=== PATIENT | male | born 1955 | race Caucasian/White ===

== ENCOUNTER 2017-02-22 18:58 | Emergency (ER) | payer OTHER ==
[2017-02-22 19:03] VITALS: BP 148/81; PULSE 76; RESP 16; TEMP 98.2; O2SAT 98
[2017-02-22] MEDS ORDERED: CEPHALEXIN 500 MG CAP PO ONE (19:34)
[2017-02-22] MEDS ORDERED: SULFAMETHOX/TMP 800/160 MG 1 TAB PO ONE (19:34)
--- NOTE | 2017-02-22 19:37 | EDPHY ---
H & P Stated Complaint: INFECTION R 3RD DIGIT Time Seen by Provider: 02/22/17 19:34 HPI/ROS: HPI: This is a 61-year-old male who presents with Chief Complaint: Right 3rd finger infection Location: Right 3rd finger Quality: Infection Duration: Started Tuesday Signs and Symptoms: No bleeding, no radiation, no numbness, no weakness, no tingling, no incontinence, no decreased range of motion, + swelling, + pain Timing: Improved and now worsening today Severity: Moderate Context: Patient reports Tuesday he was working with wanted believes that he may have cut himself for got a piece of it inside of his right middle finger. The next day he noted some redness and tenderness. He lanced it himself and drained some purulent drainage. He then reports he washed it thoroughly and soaks it daily and hydrogen peroxide. It was improving until today when he noted that his entire right finger was moderately swollen. He denies any paresthesias/decreased range of motion/pain. Right-hand dominant. Tetanus up-to -date. No history of MRSA/diabetes mellitus. Modifying Factors: Incision and drainage; daily soaks in hydrogen peroxide Comment: ROS: see HPI Constitutional: No fever, no chills, no weight loss Eyes: No blurred vision Respiratory: No shortness of breath, no cough Cardiovascular: No chest pain Gastrointestinal: No nausea, no vomiting no diarrhea Genitourinary: No dysuria Extremities: No myalgias Neurologic: No weakness, no numbness Skin: No rashes Hematologic: No bruising, no bleeding MEDICAL/SURGICAL/SOCIAL HISTORY: Medical history: Generally healthy. Does not take any regular medications. Surgical history: L4-5 DISCECTOMY, HERNIA SURG Social history: Employed. CONSTITUTIONAL: Pleasant nontoxic-appearing elderly white male, awake and alert , no obvious distress HEENT: Atraumatic and normocephalic, PERRL, EOMI. Tympanic membranes clear. Oropharynx clear, no exudate and moist pink mucosa. Airway patent. No lymphadenopathy. No meningismus. Cardiovascular: Normal S1/S2, regular rate, regular rhythm, without murmur rub or gallop. PULMONARY/CHEST: Symmetrical and nontender. Clear to auscultation bilaterally. Good air movement. No accessory muscle usage. ABDOMEN: Soft, nondistended, nontender, no rebound, no guarding, no peritoneal signs, no masses or organomegaly. No CVAT. EXTREMITIES: 2/2 radial pulses, right middle finger distal aspect medial side; shows mild induration and erythema; no nail involvement; no fluctuant area. PIP PIP and MCP joints show full flexion and extension. strength 5/5, no deformities, no clubbing, no cyanosis or edema. NEUROLOGICAL: no focal neuro deficits. GCS 15. SKIN: Warm and dry, no erythema. no rash. Good capillary refill. Source: Patient Exam Limitations: No limitations - Personal History Current Tetanus/Diphtheria Vaccine: Yes Tetanus Vaccine Date: 2010 - Medical/Surgical History Hx Asthma: No Hx Chronic Respiratory Disease: No Hx Diabetes: No Hx Cardiac Disease: No Hx Renal Disease: No Hx Cirrhosis: No Hx Alcoholism: No Hx HIV/AIDS: No Hx Splenectomy or Spleen Trauma: No Other PMH: L4-5 DISCECTOMY, HERNIA SURG - Social History Smoking Status: Never smoked Constitutional: Initial Vital Signs Temperature (C) 36.8 C 02/22/17 19:01 Heart Rate 76 02/22/17 19:01 Respiratory Rate 16 02/22/17 19:01 Blood Pressure 148/81 H 02/22/17 19:01 O2 Sat (%) 98 02/22/17 19:01 O2 Delivery Mode Room Air Allergies/Adverse Reactions: Penicillins Allergy (Verified 02/22/17 18:59) Home Medications: Medication Instructions Recorded No Medications [NO HOME 1 ea [facility] [place] Cephalexin [Keflex (*)] 500 mg PO QID #28 cap 02/22/17 Sulfamethox/Tmp 800/160 mg 1 tab PO BID #14 tab 02/22/17 [Bactrim Ds] Medical Decision Making ED Course/Re-evaluation: Patient is adamant that he does not need labs or images. He is requesting oral antibiotics to start. He understands the risks of tenosynovitis, sepsis, loss of limb. He reports that he will follow up with his PCP or in the emergency room in 48-72 hours if he does not see improvement. No fluctuance to I and D Afebrile and no systemic signs. No signs of neurovascular compromise/tenting of skin/compartment syndrome/ extremities and joints examined above and below area of concern and are neurovascularly intact. This patient was seen under the supervision of my secondary supervising physician. I evaluated care for this patient independently. Patient's presentation, labs/imaging, treatment and plan of care were discussed with secondary supervising physician. Differential Diagnosis: Differential diagnosis includes foreign body, paronychia, tenosynovitis, cellulitis, abscess. Departure - Departure Disposition: Home, Routine, Self-Care Clinical Impression: Finger infection Condition: Good Instructions: Paronychia (ED), Cellulitis (ED) Additional Instructions: Please take all of the Keflex and Bactrim as directed until complete. Continue to wash the area with mild soap and water and soak 2-3 times per day. Limit the use of the right middle finger as much as possible until fully healed. If you do not see improvement in your infection in 48-72 hours or symptoms are worsening; please return to the emergency room immediately. Referrals: Priyanka Perez MD [Primary Care Provider] - As per Instructions Prescriptions: Cephalexin [Keflex (*)] 500 mg PO QID #28 cap Sulfamethox/Tmp 800/160 mg [Bactrim Ds] 1 tab PO BID #14 tab
== END 2017-02-22 19:50 | disposition home or self-care (01) ==
DX: L08.9 Local infection of the skin and subcutaneous tissue, unspecified (principal)

== ENCOUNTER → 2017-04-13 | Outpatient (CLI) | payer OTHER | LOC: GIMAGING 14:20 | PROVIDERS: ATTEND Registered Nurse | DX: M25.531 Pain in right wrist (principal) | CPT/HCPCS: 73110-PO ==

== ENCOUNTER → 2018-05-26 | Outpatient (CLI) | payer OTHER | LOC: FIMAGING 16:10 | PROVIDERS: ATTEND Family Medicine | DX: M79.605 Pain in left leg (principal); R93.6 Abnormal findings on diagnostic imaging of limbs ==

== ENCOUNTER 2018-08-03 22:37 | Observation (INO) | payer OTHER ==
[2018-08-03] MEDS ORDERED: NS 1,000 ML IV ONE (22:48)
[2018-08-03] MEDS ORDERED: ASPIRIN 81 MG CHEWABLE TAB PO ONE (22:48)
--- NOTE | 2018-08-03 22:48 | EDPHY ---
H & P Stated Complaint: CP staarted 30mins ago with left arm numbness Time Seen by Provider: 08/03/18 22:48 HPI/ROS: HPI CHIEF COMPLAINT: Chest discomfort HISTORY OF PRESENT ILLNESS: This is a 62-year-old male, history of hyperlipidemia, recently started on a statin, and had a high calcium score recently. He presents emergency room with chest pain and back pain and left arm numbness and tingling. The patient reports to me approximately an hour ago when he was getting ready to go to bed and laid down developed pain in his back that went to his chest. Describes a dull ache. He felt numbness and tingling down his left arm. This persisted. He drove himself to the hospital. He states since arriving to the ER it has somewhat resolved. Denies pleuritic pain or shortness of breath. States he has never had this before. Past Medical History: Hyperlipidemia Past Surgical History: No recent surgery Social History: Denies drugs, or tobacco. Does drink alcohol reports 10 drinks per week. Family History: Significant family history of coronary artery disease in multiple family members mom and dad with stents. ROS REVIEW OF SYSTEMS: 10 Systems were reviewed and negative with the exception of the elements mentioned in the history of present illness. Exam Constitutional triage nursing summary reviewed, vital signs reviewed, awake/ alert. Eyes normal conjunctivae and sclera, EOMI, PERRLA. HENT normal inspection, atraumatic, moist mucus membranes, no epistaxis, neck supple/ no meningismus, no raccoon eyes. Respiratory clear to auscultation bilaterally, normal breath sounds, no respiratory distress, no wheezing. Cardiovascular rate normal, regular rhythm, no murmur, no edema, distal pulses normal. Gastrointestinal soft, non-tender, no rebound, no guarding, normal bowel sounds, no distension, no pulsatile mass. Genitourinary no CVA tenderness. Musculoskeletal no midline vertebral tenderness, full range of motion, no calf swelling, no tenderness of extremities, no meningismus, good pulses, neurovascularly intact. Skin pink, warm, & dry, no rash, skin atraumatic. Neurologic awake, alert and oriented x 3, AAOx3, moves all 4 extremities equally, motor intact, sensory intact, CN II-XII intact, normal cerebellar, normal vision, normal speech. Psychiatric normal mood/affect. Heme/Lymph/Immune no lymphadenopathy. Differential Diagnosis: Differential diagnosis includes but is not limited to: ACS, atypical chest pain, pneumothorax, pneumonia, pulmonary embolism, aortic dissection, congestive heart failure, tumor, musculoskeletal pain, esophageal pain, GERD, peptic ulcer disease, pancreatitis Medical Decision Making: Plan for this patient IV establishment with blood draw , EKG, troponin, D-dimer, chest x-ray, full-dose aspirin, nitroglycerin and re- evaluate. Re-evaluation: EKG interpretation by me on record in [employer] system. Impression time of EKG 2247, sinus rhythm rate of [address] angiogram obtained due to interscapular back pain radiating to the chest. Rule out aortic dissection. I discussed the reason for CT scan with the patient he is agreeable for this. Patient agrees for CT angiogram chest. Troponin noted be negative. D-dimer negative. Patient's cardiovascular risk factors include his age, family history, typical chest pain, high calcium score and alcohol intake. Long discussion with the patient 12:49 a.m. Risk versus benefit evaluated with the patient discussed with him about being admitted the hospital. Given his chest discomfort describes a person sensation that goes from his back to the left anterior chest and then numbness tingling down his left arm I do feel that it is appropriate to admit him to the hospital for further evaluation serial enzymes and stress test. I reviewed his cardiovascular risk factors which includes Family history, he is typical chest pain presentation, high calcium score, his age. Did have a normal EKG here, normal troponin negative D-dimer the normal CT angiogram of the chest. Plan for admission the hospital for further cardiac evaluation. Patient agrees for this. He consents for being admitted. Spoke with the hospitalist service Dr. Ochoa Agrees to admit patient. Source: Patient - Personal History Current Tetanus/Diphtheria Vaccine: Yes Current Tetanus Diphtheria and Acellular Pertussis (TDAP): Yes Tetanus Vaccine Date: 2010 - Medical/Surgical History Hx Asthma: No Hx Chronic Respiratory Disease: No Hx Diabetes: No Hx Cardiac Disease: No Hx Renal Disease: No Hx Cirrhosis: No Hx Alcoholism: No Hx HIV/AIDS: No Hx Splenectomy or Spleen Trauma: No Other PMH: L4-5 DISCECTOMY, HERNIA SURG, - Social History Smoking Status: Never smoked Constitutional: Initial Vital Signs Temperature (C) 36.9 C 08/03/18 22:39 Heart Rate 72 05/23/19 22:39 Respiratory Rate 16 08/03/18 22:39 Blood Pressure 145/87 H 08/03/18 22:39 O2 Sat (%) 99 08/03/18 22:39 O2 Delivery Mode Room Air Allergies/Adverse Reactions: Penicillins Allergy (Verified 08/04/18 07:57) Hives Home Medications: Medication Instructions Recorded Aspirin [Aspirin 81mg (*)] 81 mg PO DAILY 08/04/18 Atorvastatin Calcium [Lipitor 20 20 mg PO HS 08/04/18 mg (*)] Herbals/Supplements -Info Only 1 ea PO DAILY 08/04/18 Ibuprofen [Motrin (*)] 200 mg PO DAILY PRN 08/04/18 Metoprolol Succinate Xr [Toprol Xl 25 mg PO DAILY #30 tab 08/04/18 25 mg (*)] [place]-3 Fatty Acids [Fish Oil 1000 1,000 mg PO DAILY 08/04/18 mg (*)] Vardenafil HCl [Levitra] 5 mg PO AD PRN 08/04/18 Medical Decision Making - Data Points Laboratory Results: Laboratory Results 08/03/18 22:49 08/03/18 22:49 Medications Given: Discontinued Medications Aspirin (Aspirin) 324 mg PO EDNOW ONE Stop: 08/03/18 22:49 Last Admin: 08/03/18 22:57 Dose: 324 mg Enoxaparin Sodium (Lovenox) 40 mg SC DAILY ELSIE Stop: 01/31/19 08:59 Last Admin: 08/04/18 10:10 Dose: 40 mg Sodium Chloride (Ns) 1,000 mls @ 0 mls/hr IV EDNOW ONE; Wide Open PRN Reason: Protocol Stop: 08/03/18 22:49 Last Admin: 08/03/18 22:57 Dose: 1,000 mls Ketorolac Tromethamine (Toradol) 15 mg IVP EDNOW ONE Stop: 08/04/18 00:45 Last Admin: 08/04/18 00:54 Dose: 15 mg Nitroglycerin (Nitrostat) 0.4 mg SL EDNOW ONE Stop: 08/03/18 22:58 Last Admin: 08/03/18 23:03 Dose: 0.4 mg Point of Care Test Results: Chemistry 08/03/18 22:52 POC Troponin I 0.01 ng/mL ng/mL (0.00-0.08) Departure - Departure Disposition: [facility] Inpatient Acute Clinical Impression: Chest pain Qualifiers: Chest pain type: unspecified Qualified Code(s): R07.9 - Chest pain, unspecified Condition: Good
[2018-08-03] MEDS ORDERED: NITROGLYCERIN 0.4 MG BTL SL ONE (22:57)
[2018-08-03 23:02] LABS: PLATELET COUNT 225 10^3/uL (150-400)
[2018-08-03 23:11] LABS: INR 0.95 (0.83-1.16); PROTIME(PATIENT) 12.3 SEC (12.0-15.0)
[2018-08-03] MEDS ORDERED: IOPAMIDOL (ISOVUE 370) 100 ML BTL IV ONE (23:24)
[2018-08-04] MEDS ORDERED: KETOROLAC 15 MG/1 ML SDV IVP ONE (00:44)
[2018-08-04] MEDS ORDERED: ONDANSETRON DISINTEGRATING 4 MG TAB PO PRN (00:49)
[2018-08-04] MEDS ORDERED: ONDANSETRON 4 MG/2 ML VIAL IVP PRN (00:49)
[2018-08-04] MEDS ORDERED: ACETAMINOPHEN 325 MG TAB PO PRN (00:49)
--- NOTE | 2018-08-04 01:25 | PDGENHP ---
History and Physical - Chief Complaint Chest pain - History of Present Illness 62 yo M w/ hx of HLD and elevated coronary calcium score presents with chest pain. The patient has had chest pain the last two evenings. He describes this as starting between his shoulder blades and moving forward to his chest. He has a mild sensation in his L arm/shoulder as well. The pain was a 4/10 tonight, which is the most severe it has been. He has been having similar symptoms for some time. He saw cardiology PA Kyara Beauchamp on 08/02 who ordered a treadmill stress test to order these symptoms as an outpatient. However, this has not yet been performed. In the ED his work-up is reassuring with normal ECG and negative troponin. His HEART score is 4, denoting need for further evaluation. Case discussed with ED physician Dr. Johnson; records reviewed and summarized above. History Information - Allergies/Home Medication List Allergies/Adverse Reactions: Penicillins Allergy (Verified 08/03/18 22:41) I have personally reviewed and updated: family history, medical history - Past Medical History coronary artery disease (Per elevated coronary calcium score), hyperlipidemia - Surgical History Reports: hernia repair, spinal surgery - Family History Positive for: hypertension - Social History Smoking Status: Never smoked Review of Systems Review of Systems: ROS: 10pt was reviewed & negative except for what was stated in HPI & below Physical Exam Physical Exam: Temp Pulse Resp BP Pulse Ox 36.9 C 63 16 128/75 H 95 08/04/18 00:48 08/04/18 00:48 08/04/18 00:48 08/04/18 00:48 08/04/18 00:48 Constitutional: no apparent distress, appears nourished Eyes: PERRL, EOMI Ears, Nose, Mouth, Throat: moist mucous membranes, no oral mucosal ulcers Cardiovascular: regular rate and rhythym, no murmur, rub, or gallop Respiratory: no respiratory distress, clear to auscultation Gastrointestinal: normoactive bowel sounds, soft, non-tender abdomen Skin: warm, normal color Musculoskeletal: full muscle strength, no muscle tenderness Neurologic: AAOx3, CN II-XII Intact Psychiatric: interacting appropriately, not anxious Lab Data & Imaging Review 08/03/18 22:49 08/03/18 22:49 WBC 9.24 10^3/uL (3.80-9.50) 08/03/18 22:49 RBC 5.25 10^6/uL (4.40-6.38) 08/03/18 22:49 Hgb 16.1 g/dL (13.7-17.5) 08/03/18 22:49 Hct 47.6 % (40.0-51.0) 08/03/18 22:49 MCV 90.7 fL (81.5-99.8) 08/03/18 22:49 MCH 30.7 pg (27.9-34.1) 08/03/18 22:49 MCHC 33.8 g/dL (32.4-36.7) 08/03/18 22:49 RDW 12.3 % (11.5-15.2) 08/03/18 22:49 Plt Count 225 10^3/uL (150-400) 08/03/18 22:49 MPV 10.7 fL (8.7-11.7) 08/03/18 22:49 Neut % (Auto) 53.4 % (39.3-74.2) 08/03/18 22:49 Lymph % (Auto) 36.6 % (15.0-45.0) 08/03/18 22:49 [place]row % (Auto) 8.0 % (4.5-13.0) 08/03/18 22:49 Eos % (Auto) 1.3 % (0.6-7.6) 08/03/18 22:49 Baso % (Auto) 0.5 % (0.3-1.7) 08/03/18 22:49 Nucleat RBC Rel Count 0.0 % (0.0-0.2) 08/03/18 22:49 Absolute Neuts (auto) 4.93 10^3/uL (1.70-6.50) 08/03/18 22:49 Absolute Lymphs (auto) 3.38 10^3/uL (1.00-3.00) H 08/03/18 22:49 Absolute Monos (auto) 0.74 10^3/uL (0.30-0.80) 08/03/18 22:49 Absolute Eos (auto) 0.12 10^3/uL (0.03-0.40) 08/03/18 22:49 Absolute Basos (auto) 0.05 10^3/uL (0.02-0.10) 08/03/18 22:49 Absolute Nucleated RBC 0.00 10^3/uL (0-0.01) 08/03/18 22:49 Immature Gran % 0.2 % (0.0-1.1) 08/03/18 22:49 Immature Gran # 0.02 10^3/uL (0.00-0.10) 08/03/18 22:49 PT 12.3 SEC (12.0-15.0) 08/03/18 22:49 INR 0.95 (0.83-1.16) 08/03/18 22:49 APTT 27.8 SEC (23.0-38.0) 08/03/18 22:49 D-Dimer < 0.27 ug/mLFEU (0.00-0.50) 08/03/18 22:49 Sodium 136 mEq/L (135-145) 08/03/18 22:49 Potassium 3.7 mEq/L (3.5-5.2) 08/03/18 22:49 Chloride 101 mEq/L (97-110) 08/03/18 22:49 Carbon Dioxide 25 mEq/l (22-31) 08/03/18 22:49 Anion Gap 10 mEq/L (6-14) 08/03/18 22:49 BUN 17 mg/dL (7-23) 08/03/18 22:49 Creatinine 1.1 mg/dL (0.7-1.3) 08/03/18 22:49 Estimated GFR > 60 08/03/18 22:49 Glucose 104 mg/dL (70-100) H 08/03/18 22:49 Calcium 9.8 mg/dL (8.5-10.4) 08/03/18 22:49 Magnesium 2.0 mg/dL (1.6-2.3) 08/03/18 22:49 Total Bilirubin 1.3 mg/dL (0.1-1.4) 08/03/18 22:49 Conjugated Bilirubin 0.0 mg/dL (0.0-0.5) 08/03/18 22:49 Unconjugated Bilirubin 1.3 mg/dL (0.0-1.1) H 08/03/18 22:49 AST 32 IU/L (17-59) 08/03/18 22:49 ALT 35 IU/L (21-72) 08/03/18 22:49 Alkaline Phosphatase 71 IU/L (38-126) 08/03/18 22:49 POC Troponin I 0.01 ng/mL (0.00-0.08) 08/03/18 22:52 NT-Pro-B Natriuret Pep 22 pg/mL (0-125) 08/03/18 22:49 Total Protein 7.2 g/dL (6.3-8.2) 08/03/18 22:49 Albumin 4.7 g/dL (3.5-5.0) 08/03/18 22:49 Imaging Review: Imaging Impressions Chest X-Ray 08/03/18 22:48 Impression: Normal chest x-ray. Visualized and Interpreted EKG results: Yes EKG Interpretation: Positive for: normal sinsus rhythm Assessment & Plan Assessment: 62 yo M w/ CAD (per elevated CACS) and HLD presents with chest pain. Plan: 1. Atypical chest pain - Present for several months. He received a heart scan recently, which demonstrated an elevated coronary calcium score. The symptoms have become more severe the last 2 nights. He saw cardiology on 08/02. A treadmill stress test was ordered but has not yet been performed on an outpatient basis. His work-up on admission is reassuring with non-ischemic ECG and normal troponin. CTPE was negative for PE or dissection (personally reviewed /interpreted). HEART score of 4 suggestive of need for further evaluation. - Observe in PCU - Monitor on telemetry, trend cardiac enzymes - Will perform inpatient treadmill stress test - ECG/NTG PRN for chest pain 2. HLD - Continue statin Diet - NPO Code - Full Ppx - LMWH Dispo - Admit under observation status
[2018-08-04] MEDS ORDERED: NITROGLYCERIN 0.4 MG BTL SL PRN (01:30)
[2018-08-04 05:21] LABS: PLATELET COUNT 196 10^3/uL (150-400)
[2018-08-04] MEDS ORDERED: ENOXAPARIN 40 MG/0.4 ML SYR SC SCH (09:00)
--- NOTE | 2018-08-04 10:08 | ASMTCMCOM ---
CM Note CM Note Notes: Chart reviewed and plan of care reviewed with MD. Patient is 62 year old male admitted with chest pain . He is scheduled for stress test. No anticipated needs at this time. CM available should needs arise. Plan: Likely dc to home when medically cleared. Date Signed: 08/04/2018 10:08 AM Electronically Signed By:Dixie Ross RN
[2018-08-04 12:02] VITALS: BP 106/81
--- NOTE | 2018-08-04 13:13 | ASMTLACE ---
LACE Length of stay for Answers: Less than 1 day current admission Comorbidities - select Answers: Coronary Artery Disease all that apply Other Notes: HLD # of Emergency department Answers: 1-2 visits in the last 6 months Score: 4 Date Signed: 08/04/2018 01:13 PM Electronically Signed By:Dixie Ross RN
--- NOTE | 2018-08-04 13:15 | ASMTDCNOTE ---
Case Management Discharge Discharge Order Complete? Answers: Yes Patient to Obtain Answers: Independently Medications Transportation Arranged Answers: Family/Friends Discharge Comments Notes: Medically cleared for discharge to home no needs. Date Signed: 08/04/2018 01:14 PM Electronically Signed By:Dixie Ross RN
--- NOTE | 2018-08-04 13:38 | CPR ---
[f rep st] NONINVASIVE CARDIAC PROCEDURE REPORT DATE OF PROCEDURE: 08/04/2018 REPORT TITLE: EXERCISE TREADMILL STRESS TEST. REASON FOR TEST: Chest pain and left arm tingling. Resting EKG shows a regular sinus rhythm with T-wave inversion in V3 and aVL. He has rare PVCs. Hea rt rate 83. Resting blood pressure 110/84. STRESS TEST ACCORDING TO THE CARLOS PROTOCOL: He was exercised for a total of 10 minutes. He reached a MET level of 10.8. Maximal heart rate was 164, blood pressure 174/82. He had no chest pain with exercise. He did have a continued tingling sensation of the left arm. Nondiagnostic upslope pattern was noted. He tolerated the stress test well. RECOVERY: He did spontaneously recover. His resting blood pressure 108/76, resting heart rate 100. EKG continued to show a regular sinus rhythm with T-wave inversion of lead III and lead aVF. This test was reviewed with Dr. Charlie Rhodes. This is a mildly abnormal treadmill stress test wit h nondiagnostic upslope ST changes and the T-wave pattern in lead III and aVF. His recommendation is for an outpatient CT-A of the coronary arteries, add metoprolol 25 mg extended release daily, contin ue on his atorvastatin, and follow up with Dr. Rhodes in clinic. At this time, he currently is stable. The findings were reviewed with the hospitalist. /[id number]/MODL
--- NOTE | 2018-08-04 14:57 | PDDCSUM ---
Discharge Summary Discharge Summary: Date of Admission: 08/04/2018 Date of Discharge: 08/04/2018 Consults: Cardiology Procedures: Treadmill Stress Test Followup: Cardiology, outpatient CTA Hospital Course Problem List: 62 yo M w/ CAD (per elevated CACS) and HLD presents with chest pain. 1. Chest pain - Present for several months. He received a heart scan recently, which demonstrated an elevated coronary calcium score. The symptoms have become more severe the last 2 nights. He saw cardiology on 08/02. A treadmill stress test was ordered but has not yet been performed on an outpatient basis. His work -up on admission is reassuring with non-ischemic ECG and normal troponin. CTPE was negative for PE or dissection (personally reviewed/interpreted). HEART score of 4 suggestive of need for further evaluation. - Monitored on telemetry, trended cardiac enzymes which were negative x2 - Inpatient treadmill stress test was performed which was mildly abnormal with nondiagnostic upslope ST changes and T wave pattern in leads III and aVF. - Cardiology recommends outpatient CTA, adding metoprolol 25 mg ER qd, continue atorvastatin and ASA, and f/u with Dr. Rhodes in clinic 2. HLD - Continue statin
[2018-08-05] MEDS ORDERED: METOPROLOL SUCCINATE XR 25 MG TAB PO SCH (09:00)
--- NOTE | 2018-08-08 06:32 | CPEKG ---
Test Reason : OPEN Blood Pressure : / mmHG Vent. Rate : 075 BPM Atrial Rate : 077 BPM P-R Int : 166 ms QRS Dur : 091 ms QT Int : 385 ms P-R-T Axes : 062 053 023 degrees QTc Int : 430 ms Sinus rhythm Confirmed by Bjorn Hernandez ([id number]) on 08/08/2018 6:31:14 AM Referred By: Bjorn Hernandez Confirmed By:Bjorn Hernandez
== END 2018-08-04 12:46 | disposition home or self-care (01) ==
LOC: F2W 08-04 02:12
PROVIDERS: ADMIT Student in an Organized Health Care Education/Training Program; ATTEND Internal Medicine
DX: R07.89 Other chest pain (principal); E78.5 Hyperlipidemia, unspecified; E86.9 Volume depletion, unspecified
CPT/HCPCS: 71045; 71275; 93005; 93017; 96361; 96372; 96374; 99285; G0378; 84484-ER; J1650; J1885; Q9967

== ENCOUNTER → 2018-08-14 | Outpatient (CLI) | payer OTHER | LOC: FIMAGING 08:28 ==